=== PATIENT | female | born 1960 | race Caucasian/White ===

== ENCOUNTER 2023-02-07 08:51 | Day surgery (SDC) | payer OTHER ==
[~2023-02-07] VITALS: Ht 167.6 cm; Wt 67.3 kg
[~2023-02-07 08:51] MED LIST: ESTRACE42.5 GM VAGINAL; SINGULAIR10 MG PO
[2023-02-07 09:10] VITALS: BP 111/88
--- NOTE | 2023-02-07 12:35 | NUR ---
02/07/23 Braydon Patel PATIENT ARRIVED TO PACU AT 1230. PATIENT IS AWAKE TO VERBAL STIMULI. PATIENT WAS ON 6L NC ON ARRIVAL AND SAT WAS 97%. ATTEMPTED TO REMOVE O2 BUT SHORTLY AFTER PATIENT FELL BACK TO SLEEP AND O2 SAT DROPPED TO 89%. PATIENT WAS EASY TO AROUSE AND AT 3L PATIENT SAT WENT BACK TO 93%. PATIENT HAD NO COMPLAINTS OF PAIN, DISCOMFORT OT NAUSEA AT THIS TIME.
[2023-02-07 12:50] VITALS: BP 110/80
--- NOTE | 2023-02-10 15:34 | OR ---
[facility] [address], [place] [address] Signed DATE OF OPERATION: 02/07/2023 SURGEON: Dian Alcazar MD PREOPERATIVE DIAGNOSES: 1. Positive Cologuard test. 2. Negative colonoscopy 2011 ([facility]). POSTOPERATIVE DIAGNOSES: 1. Small polyp right colon (excised). 2. Focal area of thickening rectosigmoid (biopsied) and internal hemorrhoids, minimal diverticular change. PROCEDURE: Total colonoscopy to cecum with cold morcellation polypectomy x1 and biopsy of rectosigmoid. ANESTHESIA: Intravenous sedation; fentanyl 100 mcg and Versed 5 mg. INDICATION: This 62-year-old white woman is a patient of Dr. Aye Mittal and underwent colonoscopy in 2012 at [facility], which was said to be negative. She has family history of colon cancer in a 1st cousin. She has no symptoms of bleeding, diarrhea or constipation currently. A Cologuard test was obtained which was positive. On that basis, colonoscopy was recommended. The risk of bleeding, infection, perforation, and other unforeseen complications were reviewed with her in detail. She understands and wished to proceed. FINDINGS: The prep was quite excellent. Complete colonoscopy was undertaken to the cecum with full intubation of the cecum as well. The only notable finding corresponding the Cologuard test was a very small linear polyp of the right colon which was excised with cold morcellation technique. There was an area of focal thickening in the rectosigmoid which was biopsied. Retroflexed view confirmed internal hemorrhoids. DESCRIPTION OF PROCEDURE: The patient was brought to the endoscopy suite and placed in the lateral decubitus position, given intravenous sedation to the point of slurred speech and nystagmus. Digital rectal examination was normal. Electronically Signed By: DIAN ALCAZAR MD 02/10/23 1534 PATIENT NAME: ANUSHKA BRODERICK OPERATIVE REPORT DATE OF : 60 REPORT #: [id number] PHYSICIAN: DIAN ALCAZAR MD PCP: AYE MITTAL MD REPORT IS CONFIDENTIAL AND NOT TO BE RELEASED WITHOUT AUTHORIZATION [facility] [address], [place] [address] Signed An Olympus video colonoscope was passed in the rectum and manipulated throughout the colon ultimately intubating the cecum itself. The ileocecal valve and appendiceal orifice were normal. The scope was carefully withdrawn and examination undertaken, in the mid right colon was a linear adenomatous appearing polyp. It was quite small indeed and surprising that would be detected by Cologuard test. In any case, it was excised with multiple bites from morcellation device until it was completely gone. The scope was then withdrawn and careful inspection further showed no other abnormality into the rectosigmoid where an area of focal thickening was noted. Narrowband imaging failed to prove this to be anything other than focal thickening and it was biopsied. Further withdrawal allowed for retroflexed view in the rectum, which showed internal hemorrhoidal changes but no other findings of concern. The scope was removed and the patient was taken to the recovery room in good condition. CONCLUDING DIAGNOSES: 1. Small polyp right colon. 2. Focal thickening rectosigmoid (biopsied) and internal hemorrhoids. PLAN: Recommend repeat colonoscopy in 5 years, sooner if clinically indicated. She will return to the ongoing care of Dr. Mittal. Dian Alcazar MD JM/MODL /[id number] cc: Aye Mittal MD Copies: ~ Electronically Signed By: DIAN ALCAZAR MD 02/10/23 1534 PATIENT NAME: ANUSHKA BRODERICK OPERATIVE REPORT DATE OF : 60 REPORT #: [id number] PHYSICIAN: DIAN ALCAZAR MD PCP: AYE MITTAL MD REPORT IS CONFIDENTIAL AND NOT TO BE RELEASED WITHOUT AUTHORIZATION
--- NOTE | 2023-02-11 17:32 | PATH ---
[facility] [address] [place] [place] [address] Signed SPECIMEN(S): A ASCENDING/RIGHT COLON POLYP SPECIMEN(S): B RECTOSIGMOID BIOPSY SPECIMEN SOURCE: A. ASCENDING/RIGHT COLON POLYP B. RECTOSIGMOID BIOPSY CLINICAL HISTORY: Colonoscopy. Positive Cologuard test; hemorrhoids. FINAL PATHOLOGIC DIAGNOSIS: A. Ascending/right colon polyp: - Tubular adenoma (two fragments). B. Rectosigmoid biopsy: - Benign colonic mucosa with slight hyperplastic features (one fragment). JR:luz MICROSCOPIC EXAMINATION: Histologic sections of all submitted blocks are examined by light microscopy. These findings, together with the gross examination, support the pathologic diagnosis. GROSS DESCRIPTION: A. The specimen, labeled and designated "Ml Warren, colon, ascending/right polypectomy," is received in formalin and consists of multiple newton-pink fragments of soft tissue measuring 0.4 x 0.7 cm in greatest dimension, all specimens are submitted entirely in (A1). B. The specimen, labeled and designated "Ml Warren, colon, sigmoid/rectum biopsy," is received in formalin and consists of 1 newton soft tissue fragment measuring 0.2 x 0.5 cm and is submitted entirely in (B1). MMA (under the direct supervision of a pathologist) The Gross Description was prepared using a voice recognition system. The report was reviewed for accuracy; however, sound-alike word errors, addition and/or deletions may occur. If there is any question about this report, please contact Client Services. PERFORMING LABORATORY: Technical component was performed by [employer], [address] [place] [id number] (CLIA# [id number]). Professional interpretation was performed by [facility] [facility] - [facility], [facility] PATIENT NAME: ANUSHKA WARREN PATHOLOGY DATE OF : 60 REPORT #: [id number] PHYSICIAN: CARMELA PATHOLOGY PCP: ELISABET DAVE MD REPORT IS CONFIDENTIAL AND NOT TO BE RELEASED WITHOUT AUTHORIZATION [facility] [address] [place], [place] [address], [place] [address] (CLIA#: [id number]). Diagnostician: Anuj Escobar MD Pathologist Electronically Signed 02/11/2023 Copies: ~ PATIENT NAME: ANUSHKA WARREN PATHOLOGY DATE OF : 60 REPORT #: [id number] PHYSICIAN: CARMELA PATHOLOGY PCP: ELISABET DAVE MD REPORT IS CONFIDENTIAL AND NOT TO BE RELEASED WITHOUT AUTHORIZATION
== END 2023-02-07 13:02 | disposition home or self-care (01) ==
LOC: OPS 08:51 → DS 08:55 → OPS 09:30 → DS 12:15 → OPS 13:02
PROVIDERS: ATTEND Surgery
PROC: 0DBN8ZX Excision of Sigmoid Colon, Via Natural or Artificial Opening Endoscopic, Diagnostic (ICD-10-PCS; 2023-02-07)
PROC: 0DBH8ZX Excision of Cecum, Via Natural or Artificial Opening Endoscopic, Diagnostic (ICD-10-PCS; principal; 2023-02-07 10:00)
DX: D12.2 Benign neoplasm of ascending colon (principal); K63.89 Other specified diseases of intestine; K57.30 Diverticulosis of large intestine without perforation or abscess without bleeding; K64.8 Other hemorrhoids; R19.5 Other fecal abnormalities; Z80.0 Family history of malignant neoplasm of digestive organs; Z88.1 Allergy status to other antibiotic agents; Z79.899 Other long term (current) drug therapy
CPT/HCPCS: 99153; G0500; J2250; J3010; J7121

== ENCOUNTER 2023-08-20 09:20 | Day surgery (SDC) | payer OTHER ==
[2023-08-15 09:19] VITALS: BP 121/90
[~2023-08-20] VITALS: Ht 167.6 cm; Wt 68.2 kg
[~2023-08-20 09:20] MED LIST changes: +CEFAZOLIN SODIUM 2 GM/20 ML SYR IV SCH; +CLARITIN10 MG PO; +DEXAMETHASONE SOD PHOS 4 MG/ML VIAL ONE; +FAMOTIDINE 20 MG/ 2 ML VIAL ONE; +IBLOOD GLUCOSE TEST STRIP 1 EA TEST VI PRN; +KETOROLAC TROMETHAMINE 30 MG/ML VIAL ONE; +LACTATED RINGER'S 1,000 ML IV ONE; +LACTATED RINGER'S 1,000 ML IV SCH; +LIDOCAINE HCL 1% 5 ML SDV INJ ONE; +LIPITOR10 MG PO; +METOCLOPRAMIDE HCL 10 MG/2 ML SDV ONE; +MIDAZOLAM HCL 2 MG/2 ML VIAL ONE; +fentaNYL citrate 100 MCG/2 ML VIAL ONE; +ondansetron HCL 4 MG/2 ML VIAL ONE; +propofoL 200 MG/20 ML VIAL ONE
[2023-08-20 09:30] VITALS: BP 142/99
[2023-08-20] MEDS ORDERED: OXYMETAZOLINE HCL 30 ML BTL NAS SCH (10:00)
[2023-08-20] MEDS ORDERED: dexmedeTOMIDine HCl 200 MCG/2 ML VIAL ONE (10:33)
--- NOTE | 2023-08-20 11:43 | NUR ---
08/20/23 1143 Dunia Prado 1118 PT ARRIVED IN PACU SLEEPY. PACKING INTACT AND TIE TO END OF NOSE WITH BUTTON. 1130 RESTING. REU. 1144 SITTING UP IN BED SIPPING ON WATER.
[2023-08-20 11:50] VITALS: BP 114/73
[2023-08-20] MEDS ORDERED: HYDROCODONE/ACETA 5/325 TAB PO PRN (12:00)
[2023-08-20 12:50] VITALS: BP 128/77
--- NOTE | 2023-08-20 13:04 | OR ---
[facility] [address] [place], [place] [address] Signed DATE OF OPERATION: 08/20/2023 SURGEON: Luis Casarez MD PREOPERATIVE DIAGNOSIS: Inferior turbinate hypertrophy. POSTOPERATIVE DIAGNOSIS: Inferior turbinate hypertrophy. PROCEDURE: Cautery, bilateral inferior turbinate, submucosal. ANESTHESIA: General, LMA; Jayesh HALL PREOP HISTORY: Jud is a 63-year-old lady with chronic nasal congestion, obstruction, and drainage, found to have inferior turbinate hypertrophy, this has been unresponsive to appropriate medications. She is taken to the operating room for the above-mentioned procedures. OPERATIVE PROCEDURE AND FINDINGS: After informed consent, the patient was taken to the operating room, placed in supine position, where general LMA anesthesia was induced. Patient and procedure were verified. The patient received intranasal oxymetazoline and intravenous Ancef preoperatively. Headlight and speculum exam of the nasal cavity showed good decongestion of the inferior turbinates. Septum was midline, nonobstructive. The left side was approached initially with long handle needle point cautery. Multiple transmucosal passes on the inferior turbinate starting anteriorly, extending all the way back posteriorly on the medial and inferior surface. Excellent shrinkage. Decongestion of the turbinate was obtained. Same procedure on the right inferior turbinate. Hemostasis was controlled. Packing was then placed, trimmed Merocel, one piece each side coated with Neosporin, tied anteriorly over a pad. The pharynx was suctioned clear of blood and secretions. The patient was then awakened, extubated, and transported to the recovery room in good condition. COMPLICATIONS: No complications. BLOOD LOSS: Electronically Signed By: LUIS CASAREZ MD 08/20/23 1304 PATIENT NAME: JUD BRODERICK OPERATIVE REPORT DATE OF : 60 REPORT #: [id number] PHYSICIAN: LUIS CASAREZ MD PCP: ELISABET DAVE MD REPORT IS CONFIDENTIAL AND NOT TO BE RELEASED WITHOUT AUTHORIZATION [facility] [address] [place] [address] [place], [place] [address] Signed Minimal. SPECIMEN: No specimens. DRAINS: No drains. PACKING: One piece of Merocel on each nostril. Luis Casarez MD /MODL /[id number] Copies: ~ Electronically Signed By: LUIS CASAREZ MD 08/20/23 1304 PATIENT NAME: JUD BRODERICK OPERATIVE REPORT DATE OF : 60 REPORT #: [id number] PHYSICIAN: LUIS CASAREZ MD PCP: ELISABET DAVE MD REPORT IS CONFIDENTIAL AND NOT TO BE RELEASED WITHOUT AUTHORIZATION
--- NOTE | 2023-08-20 13:25 | NUR ---
LE 1150 PATIENT BACK TO ROOM 5. PATIENT ALERT AND ORIENTED. BREATHING EQUAL AND UNLABORED. OXYGEN SATURATIONS ABOVE 90% ON ROOM AIR. PATIENT DENIES PAIN AT THIS TIME OR BEING NAUSEATED. PATIENT HAS NO DRAINAGE. SCD'S ON. IVF INFUSING. PATIENT DRINKING WATER AND EATING JELLO. LE 1230 PATIENT ABLE TO AMBULATE TO THE RESTROOM. VOIDED CLEAR AND YELLOW URINE. LE 1250 PATIENT ALERT AND ORIENTED. BREATHING EQUAL AND UNLABORED. OXYGEN SATRUATIONS ABOVE 90% ON ROOM AIR. PATIENT DENIES BEING NAUSEATED OR PAINFUL. PATIENT HAS NO DRAINAGE AT THIS TIME. SCD'S ON. IVF INFUSING. PATIENT HAS MET DISCHARGE CRITERIA. NO QUESTIONS AT THIS TIME. PATIENT WHEELED OUT OF FACILITY NO FUTHER NEEDS.
== END 2023-08-20 12:58 | disposition home or self-care (01) ==
LOC: DS 09:20
PROVIDERS: ATTEND Otolaryngology
PROC: 095L7ZZ Destruction of Nasal Turbinate, Via Natural or Artificial Opening (ICD-10-PCS; principal; 2023-08-20 11:00)
DX: J34.3 Hypertrophy of nasal turbinates (principal); J32.9 Chronic sinusitis, unspecified; J30.9 Allergic rhinitis, unspecified
CPT/HCPCS: J0690; J1100; J1885; J2250; J2405; J2704; J2765; J3010; J7121

== ENCOUNTER 2025-03-15 09:09 | Emergency (ER) | payer OTHER ==
[~2025-03-15] VITALS: Ht 167.6 cm; Wt 70.5 kg
[~2025-03-15 09:09] MED LIST changes: -CEFAZOLIN SODIUM 2 GM/20 ML SYR IV SCH; -DEXAMETHASONE SOD PHOS 4 MG/ML VIAL ONE; -FAMOTIDINE 20 MG/ 2 ML VIAL ONE; -IBLOOD GLUCOSE TEST STRIP 1 EA TEST VI PRN; -KETOROLAC TROMETHAMINE 30 MG/ML VIAL ONE; -LACTATED RINGER'S 1,000 ML IV ONE; -LACTATED RINGER'S 1,000 ML IV SCH; -LIDOCAINE HCL 1% 5 ML SDV INJ ONE; -METOCLOPRAMIDE HCL 10 MG/2 ML SDV ONE; -MIDAZOLAM HCL 2 MG/2 ML VIAL ONE; -fentaNYL citrate 100 MCG/2 ML VIAL ONE; -ondansetron HCL 4 MG/2 ML VIAL ONE; -propofoL 200 MG/20 ML VIAL ONE
[2025-03-15 10:23] VITALS: BP 118/86
== END 2025-03-15 10:24 | disposition home or self-care (01) ==
LOC: ED 09:09
DX: S93.402A Sprain of unspecified ligament of left ankle, initial encounter (principal); E78.00 Pure hypercholesterolemia, unspecified; W18.30XA Fall on same level, unspecified, initial encounter; Z79.899 Other long term (current) drug therapy; Z88.1 Allergy status to other antibiotic agents
CPT/HCPCS: 73610; 99283